=== PATIENT | male | born 1990 ===

== ENCOUNTER 2022-09-29 10:17 | Day surgery (SDC) | payer MEDICARE, OTHER ==
[~2022-09-29] VITALS: Ht 147.3 cm; Wt 46.9 kg
[~2022-09-29 10:17] MED LIST: AZIT200SU; MEBE100
[2022-09-29] MEDS ORDERED: Ativan1 MG (10:28)
[2022-09-29] MEDS ORDERED: OMEP20ER (10:30)
[2022-09-29] MEDS ORDERED: Vitamin D1000 UNI1 (10:31)
--- NOTE | 2022-09-29 10:56 | NUR ---
09/29/22 1056 ROMEL MCKEON EKG ORDERED BY DR MOYER
--- NOTE | 2022-09-29 11:31 | NUR ---
09/29/22 1131 ROMEL MCKEON PT IV RIGHT FOREARM INFILTRATED HOT PKS APPLIED; 3 MORE IV POKES BY RN MES./ IV PERPHERAL AND PATENT IN LEFT WRIST
[2022-09-29 12:03] VITALS: BP 97/59
--- NOTE | 2022-09-29 12:44 | NUR ---
09/29/22 1244 ROMEL MCKEON PT RIGHT FOREARM SWOLLEN AND HARD FROM INTRA OP INFILTRATION OF PROPOFOL; HOT PKS APPLIED , ARM SHOWED IMPOVEMENT AND PT DENIES PAIN OF THE RIGHT FOREAREM. PT WAS POKED A TOTAL OF 5 TIMES FOR IV INSERTION. (TWO PRE OP AND 3 INTRA OP). PT C/ LEFT HAND IV INSERTION ATTEMPT SORE. PRESSURE BANDAGE REAPPLIED AFTER ASSESSMENT.
== END 2022-09-29 12:41 | disposition home or self-care (01) ==
LOC: ORSCSDS 10:17
PROVIDERS: Student in an Organized Health Care Education/Training Program
PROC: 0DB48ZX Excision of Esophagogastric Junction, Via Natural or Artificial Opening Endoscopic, Diagnostic (ICD-10-PCS; principal; 2022-09-29 12:00)
PROC: 0DB58ZX Excision of Esophagus, Via Natural or Artificial Opening Endoscopic, Diagnostic (ICD-10-PCS; principal; 2022-09-29 12:00)
PROC: 0D758ZZ Dilation of Esophagus, Via Natural or Artificial Opening Endoscopic (ICD-10-PCS; principal; 2022-09-29 12:00)
DX: R13.10 Dysphagia, unspecified (principal); K21.00 Gastro-esophageal reflux disease with esophagitis, without bleeding; K22.2 Esophageal obstruction; K44.9 Diaphragmatic hernia without obstruction or gangrene; K29.70 Gastritis, unspecified, without bleeding; Z79.899 Other long term (current) drug therapy
CPT/HCPCS: 88305; 93005; 93010; C1726; J2704; J7120